=== PATIENT | female | born 1980 | race Caucasian/White ===

== ENCOUNTER 2024-04-17 15:37 | Emergency (ER) | payer OTHER, SELFPAY ==
[2024-04-17 15:40] VITALS: BP 144/79
[2024-04-17] MEDS: TYLENOL 1000 MG PO (19:09)
[2024-04-17] MEDS: ADACEL 0.5 ML IM (19:10)
--- NOTE | 2024-04-17 19:39 | ED.GENMED ---
History of Present Illness
General
Chief Complaint: Head Injury
Time Seen by Provider: 04/17/24 18:28
History of Present Illness
History of Present Illness:
43-year-old female with history of anxiety and depression presenting to the emergency department after a fall. Patient reports she was at a park with her son. The park is full of rocks. She tripped and fell forward, striking her head without loss
of consciousness. She arrives with a cut on her forehead and some abrasions to her knees and hands. She denies any visual changes, neck pain. She denies any weakness or numbness to her extremities. Tetanus status unknown. Denies any additional
injuries. Denies chest pain, difficulty breathing, back pain, or additional acute medical complaints.
Past History
Past History
ED Past Medical History: Hypothyroidism, Psychiatric (Anxiety, depression) and Other
Social History
Tobacco: Non-smoker
Phy Exam
Physical Exam
Physical Exam:
General: Well-appearing, no clinical signs of dehydration, nontoxic and in no acute distress
HEENT: Hematoma to the right forehead with abrasion. No deep laceration. Pupils equal and reactive. Extraocular movements intact.
Neck: appears supple, no reproducible cervical tenderness
CV: Normal heart rate, regular rhythm, no evidence of cyanosis
Resp: No accessory muscle use, no increased work of breathing, lungs clear to auscultation bilaterally
Abd: Soft and non-distended, no tenderness to palpation, normal bowel sounds
Extremities: No deformities, no swelling, no erythema, pulses and sensation intact. No tenderness to the spine. Scattered abrasions to the extremities with range of motion intact. Ecchymosis to the right underwood, again with range of motion intact.
No obvious knee or swelling. No neurovascular compromise to the lower extremities.
Neuro: alert, no focal neurologic deficit
: deferred
Rectal: deferred
Psych: Normal affect
Skin: Intact
Course
Orders/Labs/Results
Orders:
Orders
04/17/24 19:02
CT Head W/o Iv Contrast Urgent
Comment:
Reason For Exam: fall, frontal hematoma
Acetaminophen [Tylenol] 1,000 mg PO NOW STA
Tetanus/Diphth/Acelpertussis [Adacel] 0.5 ml IM .ONCE ONE
Vital Signs
Initial and Last Documented VS:
Initial Vital Signs
Temp Pulse Resp BP Pulse Ox
98.6 F 77 18 144/79 98
04/17/24 15:40 04/17/24 15:40 04/17/24 15:40 04/17/24 15:40 04/17/24 15:40
Last Documented Vital Signs
Temp Pulse Resp BP Pulse Ox
98.6 F 70 16 120/76 100
04/17/24 15:40 04/17/24 20:31 04/17/24 20:31 04/17/24 20:31 04/17/24 20:31
MDM/Problems Addressed
MDM/Problems Addressed:
43-year-old female presenting to the emergency department after a fall onto a rock with subsequent head injury. Vital signs are normal.
On exam, patient is well-appearing, no acute distress or discomfort. She is awake, alert, oriented with a GCS of 15. Patient does have large hematoma to the right forehead. Otherwise no significant signs of trauma, scattered abrasions without
concern for severe injury to the extremities. No tenderness to the cervical spine or the thoracic/lumbar spine. Given mechanism and evidence of trauma, will screen with CT brain imaging. Will update tetanus shot. Tylenol administered for pain.
20:30 - CT without acute intracranial abnormality. On reassessment patient remains hemodynamically stable. Advised ice, ibuprofen, Tylenol for hematoma. Otherwise feel stable for discharge. Return precautions discussed and patient verbalized
understanding.
*Critical Care Note
Total Time (30-74mins, 75-104mins- exclusive of procedures): Not Applicable
ED Attending Note
-
Portions of this chart may have been created with voice recognition software.� Occasional wrong word or��sound alike� substitutions may have occurred due to the inherent limitations of voice recognition software.
Discharge Plan
Departure
Referrals:
Alberta Johnson CRNP [Family Provider] -
Interventions
Interventions:
ED- Neurological Assessment Last Done: 04/17/24 19:00
ED-Skin Assessment Last Done: 04/17/24 19:00
Discharge Date and Time
Print Language: SLOVAK
[2024-04-17 20:31] VITALS: BP 120/76
== END 2024-04-17 20:50 | disposition home or self-care (01) ==
LOC: EMR 15:37
PROVIDERS: EMERGENCY PHYSICIAN Student in an Organized Health Care Education/Training Program; FAMILY PHYSICIAN Nurse Practitioner Family
DX: S00.83XA Contusion of other part of head, initial encounter (principal); S80.11XA Contusion of right lower leg, initial encounter; S80.211A Abrasion, right knee, initial encounter; S80.212A Abrasion, left knee, initial encounter; S60.512A Abrasion of left hand, initial encounter; S60.511A Abrasion of right hand, initial encounter; S00.81XA Abrasion of other part of head, initial encounter; W01.198A Fall on same level from slipping, tripping and stumbling with subsequent striking against other object, initial encounter; Y92.830 Public park as the place of occurrence of the external cause; Z23 Encounter for immunization; E03.9 Hypothyroidism, unspecified; F41.9 Anxiety disorder, unspecified; F32.A Depression, unspecified
CPT/HCPCS: 99284; 90471; 70450; 90715

== ENCOUNTER 2024-12-15 22:02 | Emergency (ER) | payer OTHER, SELFPAY ==
[2024-12-15 22:05] VITALS: BP 135/86
[2024-12-15 22:35] LABS: Hematocrit 37.7 % (37.0-47.0); Hemoglobin 12.4 g/dL (12.0-16.0); Mean Corp Hgb Conc. 32.9 g/dL (33.0-37.0); Mean Corpuscular Hgb 30.3 pg (27.0-31.0); Mean Corpuscular Volume 92.2 fL (81.0-99.0); Mean Platelet Volume 9.4 fL (7.4-10.4); Platelet Count 298 10^3/uL (130-400); Red Blood Cell Count 4.09 10^6/uL (4.20-5.40); White Blood Cell Count 7.8 10^3/uL (4.8-10.8)
[2024-12-15 22:45] LABS: HCG, Serum Qualitative Screen Negative
[2024-12-15 22:47] LABS: ALT (SGPT) 18 U/L (0-35); AST (SGOT) 30 U/L (14-36); Albumin 4.4 g/dl (3.5-5.0); Alkaline Phosphatase 100 U/L (38-126); Blood Urea Nitrogen 18 mg/dl (7-17); Calcium 9.9 mg/dl (8.4-10.2); Carbon Dioxide 31 mmol/L (22-30); Chloride 106 mmol/L (98-107); Glucose 85 mg/dl (70-99); Potassium 5.2 mmol/L (3.5-5.1); Sodium 143 mmol/L (135-145); Total Bilirubin 0.3 mg/dl (0.2-1.3); Total Protein 7.2 g/dl (6.3-8.2); eGFR > 60.00
[2024-12-15 22:57] LABS: Troponin I < 0.012 ng/ml
[2024-12-15 23:08] LABS: % Basophils 0.5 % (0-2); % Eosinophils 0.8 % (0-6); % Immature Granulocytes 0.1 % (0-0.5); % Lymphocytes 55.1 % (20.5-51.1); % Neutrophils 35.5 % (42.2-75.2); Absolute Eosinophils 0.1 10^3/uL (0-0.7); Absolute Lymphocytes 4.3 10^3/uL (1.2-3.4); Absolute Monocytes 0.6 10^3/uL (0.1-0.6); Absolute Neutrophils 2.8 10^3/uL (1.4-6.5); Nucleated Red Blood Cells % 0 %
[2024-12-16] VITALS: BP 127/82
--- NOTE | 2024-12-16 01:08 | ED.GENMED ---
History of Present Illness
General
Chief Complaint: Abdominal Symptoms
Source: patient
Exam Limitations: none
Time Seen by Provider: 12/15/24 23:27
Nursing documentation reviewed up to this point in time: agreed with
History of Present Illness
History of Present Illness:
44 y/o F with h/o PUD, no longer on PPI, anxiety
here for eval after uipper abd pain while driivng in a car tonight home from [employer]
around 8 pm noticed LUQ pain and then it spread to RUQ and onto her R flank
it lasted about 2 hours, she fel tpressure and gassy and had some rumbling in her stomach
she had a little nausea
no cp, sob, vomiting, diarrhea
pt idd have BM today which was normal
no fever/chills, urinary symptoms, black stool, vomiting blood
does have some anxiety and thinks that contributes
wanted to make sure her heart was ok
Past History
Past History
ED Past Medical History: Hypothyroidism, Psychiatric (Anxiety, depression) and Other
Social History
Tobacco: Non-smoker
Review of Systems
Review of Systems
Allergies reviewed?: Yes
Phy Exam
Physical Exam
Physical Exam:
GENERAL: Alert , in no apparent distress, well appearing
EYE: pupils equal and reactive
NECK: Supple
ENT: o/p clr, mmm.
CARDIAC: Regular rate and rhythm .
LUNGS: Clear breath sounds bilaterally, no acute respiratory distress, no wheezes/rales/rhonchi
ABDOMEN: Soft, without focal tenderness, no r/g, no cvat, normal bowel sounds
NEUROLOGICAL: Alert and oriented, no focal neuro deficits
SKIN: Warm and dry, skin intact.
MUSCULOSKELETAL: No edema, well perfused. neg april's sign
PSYCH: Normal and appropriate interaction.
Course
Orders/Labs/Results
Orders:
Orders
12/15/24 22:08
Electrocardiogram (*1) Urgent
Reason for Study: Chest Pain
EKG- Treatment ONCE
Test Result ONCE
12/15/24 22:20
Complete Blood Count/With Diff Urgent
Comprehensive Metabolic Panel Urgent
HCG, Serum Qualitative Screen Urgent
Comment: Notify provider if positive test present
Troponin I Urgent
12/16/24 00:19
Obstruct Series W/PA Chest [CR Obstruct Series W/pa Chest] Urgent
Comment:
Reason For Exam: upper belly pain, gas
Abnormal Lab Results
12/15/24
22:20
RBC 4.09 L 10^6/uL
(4.20-5.40)
MCHC 32.9 L g/dL
(33.0-37.0)
Absolute Lymphs (auto) 4.3 H 10^3/uL
(1.2-3.4)
Neutrophils % 35.5 L %
(42.2-75.2)
Lymphocytes % 55.1 H %
(20.5-51.1)
Potassium 5.2 H mmol/L
(3.5-5.1)
Carbon Dioxide 31 H mmol/L
(22-30)
BUN 18 H mg/dl
(7-17)
12/15/24 22:20
12/15/24 22:20
Vital Signs
Initial and Last Documented VS:
Initial Vital Signs
Temp Pulse Resp BP Pulse Ox
36.8 C 78 16 135/86 100
12/15/24 22:05 12/15/24 22:05 12/15/24 22:05 12/15/24 22:05 12/15/24 22:05
Last Documented Vital Signs
Temp Pulse Resp BP Pulse Ox
36.8 C 72 18 127/82 98
12/15/24 22:05 12/16/24 00:00 12/16/24 00:00 12/16/24 00:00 12/16/24 00:00
MDM/Problems Addressed
Differential Diagnosis Includes:
constipation, gas pain, gall stones, les likely ACS
MDM/Problems Addressed:
44 y/o F
h/o PUD that resolved, no PPI currently
anxiety/depressin
upper abd pain starting L then moving R tonight
now resolved
lasted a few hours
moved bowels today but felt gassy and has been bloated
no vomiting, fever, cp, sob
she came to be sure it wasn't cardiac
her exam is unremarkable
ekg nonischemic
trop neg
lfts normal
suspected bowel gas/constipation which was evidnet on CXR
miralax, metamucil
*Critical Care Note
Total Time (30-74mins, 75-104mins- exclusive of procedures): Not Applicable
ED Attending Note
-
Portions of this chart may have been created with voice recognition software.� Occasional wrong word or��sound alike� substitutions may have occurred due to the inherent limitations of voice recognition software.
Discharge Plan
Departure
Patient Disposition: Home (Routine Discharge)
Date of Disposition: 12/16/24
Time of Disposition: 01:13
Patient with high blood pressure during this ER visit?: No
Condition: Fair
Covid-19: Not Applicable
Discharge Problem:
Abdominal pain
Instructions: Constipation, Adult (DC), Abdominal Pain
Prescriptions:
No Action
venlafaxine 150 mg Capsule,Extended Release 24hr
300 mg PO DAILY
bupropion HCl 150 mg Tablet Extended Release 24 Hr
150 mg PO DAILY
levothyroxine 100 mcg Capsule
100 mcg PO DAILY
Activity Restrictions/Additional Instructions:
TRY METAMUCIL DAILY A STOOL SOFTENER
FOR 1-3 DAYS, TRY MIRALAX ONCE A DAY TO HELP YOU HAVE BM
DRINK FLUIDS
BLAND FOOD
RETURN FOR WORSENING PAIN, VOMTING, FEVER, BLACK STOOL, CHESTP AIN, SHORTNESS OF BREATH ORA [place] CONCERNS
YOU HAD A SUBTLE HEART MURMUR THAT IS LIKELY BENIGN
TALK WITH YOUR DOCTOR ABOUT THIS
Interventions
Interventions:
*Risk Screen - Suicide Last Done: 12/15/24 22:05
*General Assessment Last Done: 12/15/24 23:45
*Neglect/Abuse Screening Last Done: 12/15/24 22:05
*Nursing Disposition Last Done: 12/16/24 01:29
XT-Ksawdj-Bjynxdkbfh Assessment Last Done: 12/15/24 23:08
Discharge Date and Time
Discharge Date/Time: 12/16/24 01:29
Print Language: HAITIAN
== END 2024-12-16 01:29 | disposition home or self-care (01) ==
LOC: EMR 22:02
PROVIDERS: Emergency Medicine; EMERGENCY PHYSICIAN Emergency Medicine; FAMILY PHYSICIAN Nurse Practitioner Family
DX: R11.0 Nausea (principal); R10.11 Right upper quadrant pain; R10.12 Left upper quadrant pain; R14.0 Abdominal distension (gaseous); F41.9 Anxiety disorder, unspecified; E03.9 Hypothyroidism, unspecified; F32.A Depression, unspecified; Z87.11 Personal history of peptic ulcer disease; F43.10 Post-traumatic stress disorder, unspecified
CPT/HCPCS: 99283; 74022; 80053; 84484; 84703; 85025; 93005

== ENCOUNTER 2024-12-27 15:16 | Emergency (ER) | payer OTHER, SELFPAY ==
[2024-12-27 15:32] VITALS: BP 142/80
[2024-12-27 16:03] LABS: % Basophils 0.2 % (0-2); % Immature Granulocytes 0.2 % (0-0.5); % Lymphocytes 28.4 % (20.5-51.1); % Monocytes 5.7 % (1.7-9.3); % Neutrophils 65.5 % (42.2-75.2); Absolute Lymphocytes 2.3 10^3/uL (1.2-3.4); Absolute Monocytes 0.5 10^3/uL (0.1-0.6); Absolute Neutrophils 5.3 10^3/uL (1.4-6.5); Hematocrit 39.7 % (37.0-47.0); Hemoglobin 13.7 g/dL (12.0-16.0); Mean Corp Hgb Conc. 34.5 g/dL (33.0-37.0); Mean Corpuscular Hgb 30.3 pg (27.0-31.0); Mean Corpuscular Volume 87.8 fL (81.0-99.0); Mean Platelet Volume 9.7 fL (7.4-10.4); Nucleated Red Blood Cells % 0 %; Platelet Count 305 10^3/uL (130-400); Red Blood Cell Count 4.52 10^6/uL (4.20-5.40); Red Cell Dist. Width 11.9 % (11.5-14.5); White Blood Cell Count 8.1 10^3/uL (4.8-10.8)
[2024-12-27 16:04] LABS: Urine Albumin Negative (Neg - Trace); Urine Bilirubin Negative (Negative); Urine Character Clear (Clear); Urine Color Yellow; Urine Glucose Negative (Negative); Urine Ketone Negative (Negative); Urine Leukocyte Negative (Negative); Urine Nitrite Negative (Negative); Urine Occult Blood Negative (Negative); Urine Urobilinogen Negative (Neg - 1+)
[2024-12-27 16:11] LABS: HCG, Serum Qualitative Screen Negative
[2024-12-27 16:15] LABS: ALT (SGPT) 19 U/L (0-35); AST (SGOT) 24 U/L (14-36); Alkaline Phosphatase 73 U/L (38-126); Blood Urea Nitrogen 7 mg/dl (7-17); Calcium 9.9 mg/dl (8.4-10.2); Carbon Dioxide 24 mmol/L (22-30); Chloride 108 mmol/L (98-107); Glucose 99 mg/dl (70-99); Potassium 3.8 mmol/L (3.5-5.1); Sodium 141 mmol/L (135-145); Total Bilirubin 0.5 mg/dl (0.2-1.3); Total Protein 7.7 g/dl (6.3-8.2); eGFR > 60.00
[2024-12-27 16:27] LABS: Troponin I < 0.012 ng/ml
[2024-12-27 18:36] VITALS: BMI 25.6
--- NOTE | 2024-12-27 18:51 | ED.GENMED ---
History of Present Illness
General
Chief Complaint: Anxiety
Source: patient
Exam Limitations: none
Time Seen by Provider: 12/27/24 18:38
History of Present Illness
History of Present Illness:
44-year-old female presents with heart racing shakiness and fatigue. This has been on going since today. She states she missed her doses of anxiety medications yesterday and she woke up this morning not feeling well. She was initially seen at the
family doctor's office and was found to have ketones in the urine. She still does not feel well and she presented here for evaluation. She notes heart racing but denies chest pain. There is no vomiting. No abdominal pain. No other complaints at
this time
Past History
Past History
ED Past Medical History: Hypothyroidism, Psychiatric (Anxiety, depression) and Other
Social History
Tobacco: Non-smoker
Phy Exam
Physical Exam
Physical Exam:
General: Well-appearing female no acute respiratory distress
HEENT: Normocephalic atraumatic
Heart: Regular rate and rhythm lungs: Clear no wheeze
Abdomen: Soft nontender nondistended
Extremities: No cyanosis or edema
Psychiatric exam: Calm cooperative normal rate of speech
Course
Orders/Labs/Results
Orders:
Orders
12/27/24 15:18
EKG [Electrocardiogram (*1)] Urgent
Reason for Study: Palpitations
EKG- Treatment ONCE
12/27/24 15:35
Electrocardiogram (*1) Urgent
Reason for Study: Chest Pain
12/27/24 15:36
Test Result ONCE
12/27/24 15:45
Complete Blood Count/With Diff Urgent
Comprehensive Metabolic Panel Urgent
HCG, Serum Qualitative Screen Urgent
Comment: Notify provider if positive test present
TSH Reflex To Free T4 Urgent
Comment: ADDON
Troponin I Urgent
Urinalysis Reflex To Culture Urgent
Date Specimen was Collected: 12/27/24
Time Specimen was Collected: 15:36
12/27/24 18:49
Add On- LAB Urgent
Tests Added?: tsh reflex to free t4
12/27/24 19:06
Lorazepam [Ativan] 0.5 mg PO NOW STA
Nursing to Place Non Medication Order As Directed
Physician Order: Please give lunch box
Above order entered?: Yes
Abnormal Lab Results
12/27/24
15:45
Chloride 108 H mmol/L
(98-107)
12/27/24 15:45
12/27/24 15:45
Vital Signs
Initial and Last Documented VS:
Initial Vital Signs
Temp Pulse Resp BP Pulse Ox
98.4 F 88 16 142/80 99
12/27/24 15:32 12/27/24 15:32 12/27/24 15:32 12/27/24 15:32 12/27/24 15:32
Last Documented Vital Signs
Temp Pulse Resp BP Pulse Ox
98.4 F 88 16 142/80 99
12/27/24 15:32 12/27/24 15:32 12/27/24 15:32 12/27/24 15:32 12/27/24 15:32
MDM/Problems Addressed
Differential Diagnosis Includes:
Patient feels anxious and shaky since missing her dose of anxiety medications yesterday. No pain. Vital signs are stable no ketones in the urine here. Labs reviewed and are normal TSH added that she does have a history of hypothyroidism. EKG
shows sinus rhythm with nonspecific changes
*Critical Care Note
Total Time (30-74mins, 75-104mins- exclusive of procedures): Not Applicable
Update Note
Update Note:
Workup here essentially unremarkable. Patient reassured. No indication for any further intervention. I suspect underlying anxiety. Stable for discharge
ED Attending Note
-
Portions of this chart may have been created with voice recognition software.� Occasional wrong word or��sound alike� substitutions may have occurred due to the inherent limitations of voice recognition software.
Discharge Plan
Departure
Patient Disposition: Home (Routine Discharge)
Date of Disposition: 12/27/24
Time of Disposition: 20:55
Patient with high blood pressure during this ER visit?: No
Discharge Problem:
Anxiety
Instructions: Anxiety, Adult (DC)
Prescriptions:
New
lorazepam [Ativan] 0.5 mg tablet
0.5 mg PO BID PRN (Reason: anxiety) Qty: 6 0RF
No Action
venlafaxine 150 mg Capsule,Extended Release 24hr
300 mg PO DAILY
bupropion HCl 150 mg Tablet Extended Release 24 Hr
150 mg PO DAILY
levothyroxine 100 mcg Capsule
100 mcg PO DAILY
Referrals:
Uriah Rivera MD [Family Provider] -
Interventions
Interventions:
*Risk Screen - Suicide Last Done: 12/27/24 15:32
*General Assessment Last Done: 12/27/24 19:55
*Neglect/Abuse Screening Last Done: 12/27/24 15:32
*ED- Fall Risk Assessment Last Done: 12/27/24 18:36
*ED COVID-19 Vaccine History Last Done: 12/27/24 18:36
ED-Psychological Assessment Last Done: 12/27/24 18:36
Discharge Date and Time
Print Language: GUINEAN
[2024-12-27] MEDS: ATIVAN 0.5 MG PO (19:12)
[2024-12-27 19:55] LABS: TSH Reflex To Free T4 0.53 uIU/ml (0.47-4.68)
[2024-12-27 21:04] VITALS: BP 124/73
== END 2024-12-27 21:05 | disposition home or self-care (01) ==
LOC: EMR 15:16
PROVIDERS: Emergency Medicine; EMERGENCY PHYSICIAN Emergency Medicine; FAMILY PHYSICIAN Family Medicine
DX: F41.9 Anxiety disorder, unspecified (principal)
CPT/HCPCS: 99284; 80053; 81003; 84443; 84484; 84703; 85025; 93005